=== PATIENT | female | born 1955 | race Caucasian/White ===

== ENCOUNTER 2018-08-31 00:02 | Observation (INO) ==
--- NOTE | 2018-08-31 00:16 | ED ---
HPI General Chief complaint: Respiratory Symptoms Stated complaint: Trouble swallowing Time Seen by Provider: 08/31/18 00:14 Source: patient Mode of arrival: ambulatory Limitations: no limitations History of Present Illness HPI narrative: 63-year-old female presents to the emergency department by private transportation for complaint of difficulty swallowing. Patient states that she ate dinner as usual and had no difficulties with consuming her meal which included pork. Patient does not report having a choking episode or feeling sensation of trapped foreign body in the esophagus. Discomfort is described as a pressure or bubble and feels as if she needs to belch. Patient has had no prior similar episodes in the past denies known history of esophageal stricture or need for endoscopy. Patient states that she is having difficulty swallowing her own saliva but has no difficulty swallowing water or tea. Patient states that she intermittently feels as if she needs to clear her throat or something is lodged or pressure is in the throat area and lower neck area. Patient has no chest pain no shortness of breath no stridor no hoarseness. Patient denies any headache visual disturbance difficulty speaking facial droop upper extremity lower extremity numbness tingling or weakness dizziness or balance disturbance. Patient states she awakened around 1130 with sensation of difficulty swallowing. Patient was able to get up and walk to her kitchen make a cup of tea which she drank without difficulty subsequently drink some water without difficulty but if she is not actually actively drinking some she has a sensation of something trapped in her throat or possibly her esophagus but has had no shortness of breath and no stridor or wheezing. Patient there is no progression or worsening of symptoms but is not resolving. No new foods medications beverages spices or known allergens Onset (ago): minute(s) (30) Related Data Allergies Allergy/AdvReac Type Severity Reaction Status Date / Time No Known Allergies Allergy Verified 08/31/18 00:10 Review of Systems ROS: all other systems reviewed are negative PMFSH History History Provided By: Patient (high cholesterol) Social History Social History Substance History: No History of Abuse Second Hand Smoke Exposure: No Smoking Status: Never smoker How Often Do You Have a Drink Containing Alcohol: Never Recent Travel in [facility] within the Last 8 Weeks: No Recent Out of Country Travel within the Last 8 Weeks: No Exam Narrative Exam Narrative: GENERAL: Well-developed well-nourished female in no acute respiratory distress, no stridor, no hoarseness, no drooling, no gaging or choking on oral secretions;appears mildly anxious. SKIN: Focused skin assessment warm/dry. HEAD: Atraumatic. Normocephalic. EYES: Pupils equal and round. No scleral icterus. No injection or drainage. ENT: No nasal bleeding or discharge. Mucous membranes pink and moist. Posterior pharynx is clear no edema airway is patent normal soft palate elevation. Positive gag reflex. Intact sensation. NECK: Trachea midline. No JVD. No palpable mass. Non-tender to palpation. CARDIOVASCULAR: Regular rate and rhythm. No murmur appreciated. RESPIRATORY: No accessory muscle use. Clear to auscultation. Breath sounds equal bilaterally. GASTROINTESTINAL: Abdomen soft, non-tender, nondistended. Hepatic and splenic margins not palpable. MUSCULOSKELETAL: No obvious deformities. No clubbing. No cyanosis. No edema. NEUROLOGICAL: Awake and alert. No obvious cranial nerve deficits. Motor grossly within normal limits. No pronator drift. No limb ataxia. Sensory exam grossly intact as tested. Normal speech, no expressive or receptive aphasia or dysarthria. PSYCHIATRIC: Appropriate mood and affect; insight and judgment normal. Course Initial Documented Vital Signs Pulse Rate 82 08/31/18 00:20 Respiratory Rate 16 08/31/18 00:20 Blood Pressure 163/76 H 08/31/18 00:20 Pulse Oximetry 100 08/31/18 00:20 Last Documented Vital Signs Pulse Rate 85 08/31/18 01:44 Respiratory Rate 16 08/31/18 01:44 Blood Pressure 135/69 08/31/18 01:44 Pulse Oximetry 99 08/31/18 01:44 Medical Decision Making [facility] Narrative Medical decision making narrative: 63-year-old female presents for complaint of isolated lower neck/throat sensation of fullness or tightness or inability to completely swallow. Patient able to swallow her own saliva and tea and water without difficulty but when she is not actively drinking complains of feeling as if her throat is dry or she has difficulty with swallowing. No stridor no hoarseness. Denies any known possible foreign body ingested became lodged has had no choking episode. Placed on monitor direct inspection of the posterior pharynx unremarkable patient demonstrates ability to drink without difficulty or choking. Patient administered Reglan glucagon and sublingual nitroglycerin with some benefit as she is not able to belch which makes her feel slightly improved. Labs normal emergent CT brain noncontrast reveals no acute abnormality and CC soft tissue of the neck reveals no airway narrowing or obvious foreign body. Patient states symptoms only slightly improved but unchanged from prior to CT. Discussed with neurology, admit to medicine w neuro consult for myasthenia eval and ba swallow no rec for MR;discussed with medicine service will admit to obs @ 2:50 patient symptoms are improving Medical Screen Exam Complete: Yes Emergency Medical Condition: Yes Differential Diagnosis Differential Diagnosis: Esophageal foreign body, esophageal spasm, laryngospasm , TIA, mass, thyroid ds, Guillain-Nina, myasthenia gravis, tetanus, viral syndrome Medical Records Medical records reviewed: Yes I reviewed the patient's medical records. none Lab Data Lab results reviewed: Yes I reviewed the patient's lab results. Result diagrams: 08/31/18 00:16 08/31/18 00:16 Lab Results 08/31/18 08/31/18 08/31/18 Range/Units 00:16 00:16 00:16 CBC w Diff Auto diff final WBC 11.5 H (4.0-11.0) th/mm3 RBC 4.87 (4.00-5.30) mil/mm3 Hgb 14.3 (11.6-15.3) gm/dL Hct 44.0 (35.0-46.0) % MCV 90.2 (80.0-100.0) fL MCH 29.4 (27.0-34.0) pg MCHC 32.5 (32.0-36.0) % RDW 12.6 (11.6-17.2) % Plt Count 403 (150-450) th/mm3 MPV 8.5 (7.0-11.0) fL Neut % (Auto) 60.3 (16.0-70.0) % Lymph % (Auto) 28.6 (9.0-44.0) % [place] % (Auto) 7.2 (0.0-8.0) % Eos % (Auto) 3.1 (0.0-4.0) % Baso % (Auto) 0.8 (0.0-2.0) % Neut # (Auto) 6.9 (1.8-7.7) th/mm3 Lymph # (Auto) 3.3 (1.0-4.8) th/mm3 [place] # (Auto) 0.8 (0.0-0.9) th/mm3 Eos # (Auto) 0.4 (0.0-0.4) th/mm3 Baso # (Auto) 0.1 (0.0-0.2) th/mm3 WBC Differential . Differential Comment . PT 9.4 L (9.8-11.6) sec INR 0.9 Ratio APTT 26.4 (23.4-31.7) sec Sodium 138 (136-145) meq/L Potassium 3.8 (3.5-5.1) meq/L Chloride 103 (98-107) meq/L Carbon Dioxide 27.9 (21.0-32.0) meq/L Anion Gap 7 (5-15) meq/L BUN 19 H (7-18) mg/dL Creatinine 0.75 (0.50-1.00) mg/dL Estimated GFR 78 L (>89) mL/min Random Glucose 121 H (74-106) mg/dL Calcium 8.8 (8.5-10.1) mg/dL Magnesium 2.5 (1.5-2.5) mg/dL Troponin I Less than 0.02 L (0.02-0.05) ng/mL TSH 10.500 H (0.358-3.740) uIU/mL Imaging Data Radiologist's impression: Head CT 08/31/18 00:32 CONCLUSION: 1. Negative noncontrast head CT. . Soft Tissue Neck CT 08/31/18 00:32 CONCLUSION: 1. Noncontrast study demonstrating mild asymmetry of the soft tissues along the base of the right side of the tongue. There is no identifiable focal mass. Direct visualization is recommended. 2. No adenopathy. ECG Data Attestation: I personally reviewed and interpreted this ECG as follows: (EKG: Sinus rhythm bradycardia rate [address] elevation injury pattern or ectopy noted) Prior ECG tracings: not available for review Discharge Plan Discharge Disposition Patient Disposition: 30 Still Patient Discharge Condition Condition: Stable Discharge Details Diagnosis: Dysphagia Physicians Team ED Provider: Asha Walker Primary Care Provider: Tate Gao Attending Provider: Lyla Diaz Other Providers: Yousuf Hdz Status ED Status: Admitted Observation Patient
[2018-08-31] MEDS: Sod Chloride 0.9% Inj 1,000 ML IV.CONT SCH ×4 (00:26→23:46)
[2018-08-31 00:32] LABS: Baso # (Auto) 0.1 th/mm3 (0.0-0.2); Baso % (Auto) 0.8 % (0.0-2.0); Eos # (Auto) 0.4 th/mm3 (0.0-0.4); Eos % (Auto) 3.1 % (0.0-4.0); Hemoglobin 14.3 gm/dL (11.6-15.3); Lymph # (Auto) 3.3 th/mm3 (1.0-4.8); Lymph % (Auto) 28.6 % (9.0-44.0); Mean Corpuscular HGB Conc 32.5 % (32.0-36.0); Mean Corpuscular Hemoglobin 29.4 pg (27.0-34.0); Mean Corpuscular Volume 90.2 fL (80.0-100.0); Mean Platelet Volume 8.5 fL (7.0-11.0); Mono # (Auto) 0.8 th/mm3 (0.0-0.9); Mono % (Auto) 7.2 % (0.0-8.0); Neut # (Auto) 6.9 th/mm3 (1.8-7.7); Neut % (Auto) 60.3 % (16.0-70.0); Platelet Count 403 th/mm3 (150-450); Red Blood Count 4.87 mil/mm3 (4.00-5.30); Red Cell Distribution Width 12.6 % (11.6-17.2); White Blood Count 11.5 th/mm3 (4.0-11.0)
[2018-08-31 00:38] LABS: Chloride 103 meq/L (98-107); Potassium 3.8 meq/L (3.5-5.1); Sodium 138 meq/L (136-145)
[2018-08-31 00:40] LABS: Calcium 8.8 mg/dL (8.5-10.1)
[2018-08-31 00:41] LABS: Anion Gap 7 meq/L (5-15); Blood Urea Nitrogen 19 mg/dL (7-18); Carbon Dioxide 27.9 meq/L (21.0-32.0); Glucose,Random 121 mg/dL (74-106); Magnesium 2.5 mg/dL (1.5-2.5)
[2018-08-31 00:42] LABS: Activated Partial Thrombo Time 26.4 sec (23.4-31.7); INR 0.9 Ratio; Prothrombin Time 9.4 sec (9.8-11.6)
[2018-08-31 00:44] LABS: Glomerular Filtration Rate 78 mL/min (>89)
[2018-08-31] MEDS ORDERED: Sodium Chlor 0.9% Inj 250 ML IV.SIG SCH (01:00)
--- NOTE | 2018-08-31 01:19 | CT ---
EXAM DATE: 08/31/2018 1:05 AM EST AGE/SEX: 63 years / Female INDICATIONS: Evaluate for transient ischemic attack. Difficulty swallowing. CLINICAL DATA: This is the patient's initial encounter. Patient reports that signs and symptoms have been present for 1 day and indicates a pain score of 3/10. MEDICAL/SURGICAL HISTORY: None. None. RADIATION DOSE: 61.93 CTDI (mGy) COMPARISON: No prior exams available for comparison. TECHNIQUE: CT of the head without contrast. Using automated exposure control and adjustment of the mA and/or kV according to patient size, radiation dose was kept as low as reasonably achievable to ob tain optimal diagnostic quality images. DICOM format image data is available electronically for revi ew and comparison. FINDINGS: Cerebrum: The ventricles are normal for age. No evidence of midline shift, mass lesion, hemorrhage or acute infarction. No extraaxial fluid collections are seen. Posterior Fossa: The cerebellum and brainstem are intact. The 4th ventricle is midline. The cerebe llopontine angle is unremarkable. Extracranial: The visualized portion of the orbits is intact. Skull: The calvaria is intact. No evidence of skull fracture. CONCLUSION: 1. Negative noncontrast head CT. . Electronically signed by: Moises Cortes MD 08/31/2018 1:17 AM EST
[2018-08-31] MEDS ORDERED: Famotidine PF Inj 20 MG/2 ML Vial IV.PUSH ONE (01:21)
[2018-08-31] MEDS ORDERED: MethylPREDNISolone Sod Succinate Inj 125 MG/2 ML Vial IV.PUSH ONE (01:21)
--- NOTE | 2018-08-31 01:29 | CT ---
EXAM DATE: 08/31/2018 1:07 AM EST AGE/SEX: 63 years / Female INDICATIONS: Difficulty swallowing. CLINICAL DATA: This is the patient's initial encounter. Patient reports that signs and symptoms have been present for 1 day and indicates a pain score of 3/10. MEDICAL/SURGICAL HISTORY: None. None. RADIATION DOSE: 11.20 CTDI (mGy) COMPARISON: No prior exams available for comparison. TECHNIQUE: Helical acquisition was performed using a multirow detector CT scanner without contrast. Using automated exposure control and adjustment of the mA and/or kV according to patient size, radiat ion dose was kept as low as reasonably achievable to obtain optimal diagnostic quality images. DICOM format image data is available electronically for review and comparison. FINDINGS: Nasopharynx: The nasopharyngeal airway has a normal configuration. No mucosal thickening or mass is seen. Oropharynx: The intrinsic muscles of the tongue are symmetric. The tonsillar pillars are intact. T he prevertebral soft tissues are not thickened. There is mild asymmetric the soft tissue along the ba se of the right side of the tongue best seen on upper axial MPR images numbers 19 through 22. There i s no focal mass. Larynx: The supraglottic, glottic, and infraglottic structures are intact. Parapharyngeal: The parapharyngeal space is intact. Salivary Glands: The parotid and submandibular glands are intact. Lymph Nodes: No enlarged nodes. Thyroid: Grossly intact. Bones: Unremarkable. CONCLUSION: 1. Noncontrast study demonstrating mild asymmetry of the soft tissues along the base of the right si de of the tongue. There is no identifiable focal mass. Direct visualization is recommended. 2. No adenopathy. Electronically signed by: Moises Cortes MD 08/31/2018 1:27 AM EST
[2018-08-31] MEDS ORDERED: Acetaminophen 325 MG Tablet PO PRN (01:46)
[2018-08-31] MEDS ORDERED: Bisacodyl 10 MG Supp RECTAL PRN (01:46)
[2018-08-31] MEDS: Heparin - SQ 10,000 UNITS/ML Vial SQ SCH ×2 (05:35→17:17)
[2018-08-31] MEDS: Senna/Docusate Sodium 8.6/50 MG Tablet PO SCH ×2 (08:12→20:56)
--- NOTE | 2018-08-31 08:23 | P.HP ---
History of Present Illness Primary Care Physician: Tate Gao MD, PhD Chief Complaint: Difficulty swallowing History of Present Illness: This is a pleasant 63-year-old female patient with a known medical history of hyperlipidemia who presented to the ED with complaints of difficulty swallowing. She woke up around 11:30 in the morning she states that she is having a hard time swallowing, she drinks some hot tea which she was able to get down although she was still having tightness in her throat. She did states that she has never had this type of sensation before. She does state that she has had a recent upper respiratory congestion with some possible postnasal drip , she states she has had some dry coughing as well as dry mouth. She is taken some ibuprofen and has attributed her symptoms to possible seasonal allergies. She does also admit to an intermittent headache over the past few days as well as sneezing and earaches. Patient denies any recent fevers, chills, chest pain , abdominal pain, nausea, vomiting, diarrhea or dysuria. Patient does have a history of hyperlipidemia although does not take a statin due to complaints of muscle aches on prescribed medication. Patient denies any history of thyroid disease, presents with a significantly elevated TSH. Denies ever having an EGD in the past. At the time of assessment patient is eating and drinking well, finished breakfast without any problems. She was given IV steroids in the ED. We will give 1 additional dose for complaints of continued swelling in her neck. On assessment patient's neck is benign, soft tissue neck CT showed some swelling on the right side but no significant findings. Neurological findings are negative, no significant weakness on bilateral upper or lower extremities. - Diagnosis (1) Dysphagia Review of Systems All other systems reviewed negative except as stated in HPI PMFSH - History History Provided By: Patient - Medical History Medical History: Medical History (Last Updated 08/31/18 @ 08:52 by Concha Connolly) Hyperlipidemia - Family History Family History: Family History (Last Updated 08/31/18 @ 08:54 by Concha Connolly) Father Addisons disease - Social History I have reviewed the patient's Social History: Yes - Tobacco History Second Hand Smoke Exposure: No Tobacco Use In Past 30 Days: No Smoking Status: Former smoker - Alcohol History How Often Do You Have a Drink Containing Alcohol: Monthly or less - Substance Use History Substance History: No History of Abuse - Travel History Recent Travel in the [place] Within the Last 8 Weeks: No Recent Travel Out of the Country Within the Last 8 Weeks: No - Immunization History Tetanus Immunization: <5 Years Hx Influenza Vaccine This Season: Yes Medications and Allergies Active Medications: Active Medications Acetaminophen (Tylenol) 650 mg PO Q4H PRN PRN Reason: Temp > 100.4 Al Hydroxide/Mg Hydroxide (Milk Of Magnesia Liq) 30 ml PO Q12H PRN PRN Reason: Mild Constipation Bisacodyl (Dulcolax Supp) 10 mg RECTAL DAILY PRN PRN Reason: SEVERE CONSITIPATION Heparin Sodium (Porcine) (Heparin Inj) 5,000 units SQ Q12H [facility] Last Admin: 08/31/18 05:35 Dose: 5,000 units Sodium Chloride (Ns Inj) 1,000 mls @ 84 mls/hr IV.CONT .[id number] [facility] Last Admin: 08/31/18 00:26 Dose: 84 mls/hr Lactulose (Lactulose Liq) 30 ml PO DAILY PRN PRN Reason: SEVERE CONSITIPATION Ondansetron HCl (Zofran Inj) 4 mg IV.PUSH Q6H PRN PRN Reason: NAUSEA OR VOMITING Senna/Docusate Sodium (Maty-Colace) 1 tab PO BID [facility] Last Admin: 08/31/18 08:12 Dose: Not Given Sennosides (Senokot) 17.2 mg PO Q12H PRN PRN Reason: Moderate Constipation Allergies Allergy/AdvReac Type Severity Reaction Status Date / Time No Known Allergies Allergy Verified 08/31/18 00:10 Exam Vital signs: Vital Signs 08/31/18 00:20 08/31/18 00:30 08/31/18 00:35 Temperature Pulse Rate 82 87 78 Respiratory Rate 16 18 Blood Pressure 163/76 H 156/71 H 140/67 Pulse Oximetry 100 100 100 08/31/18 00:41 08/31/18 00:59 08/31/18 01:44 Temperature Pulse Rate 78 85 Respiratory Rate 16 16 Blood Pressure 106/66 111/68 135/69 Pulse Oximetry 100 99 08/31/18 03:22 Temperature 97.1 F L Pulse Rate 71 Respiratory Rate 18 Blood Pressure 133/64 Pulse Oximetry 95 Intake & Output 08/30/18 08/31/18 08/31/18 18:59 06:59 18:59 Intake Total 250 / 250 Output Total 300 / 300 Balance -50 / -50 Weight 79.3 kg Intake: IV 250 / 250 NS Inj 250 ML @ 500 mls/hr IV. 250 / 250 SIG BOLUS JULISSA Rx#:[id number] Oral 0 / 0 Output: Urine 300 / 300 Other: Weight On Admission 79.4 kg Narrative: GENERAL: Well-developed, well-nourished patient in [facility]. SKIN: Warm and dry. No rash. HEAD: Normocephalic. Atraumatic. EYES: Pupils equal and round. No scleral icterus. No injection or drainage. ENT: No nasal bleeding or discharge. Mucous membranes pink and moist. NECK: Supple. Trachea midline. CARDIOVASCULAR: Regular rate and rhythm. S1, S2 noted. No murmur appreciated. RESPIRATORY: No accessory muscle use. Clear to auscultation. Breath sounds equal bilaterally. GASTROINTESTINAL: Abdomen soft, non-tender, nondistended. Normoactive bowel sounds x4. MUSCULOSKELETAL: No obvious deformities. Extremities without clubbing, cyanosis , or edema. NEUROLOGICAL: Awake and alert. No obvious cranial nerve deficits. Motor grossly within normal limits. 5/5 muscle strength in bilateral upper and lower extremities. Normal speech. PSYCHIATRIC: Appropriate mood and affect; insight and judgment normal. Results - Labs CBC & Chem 7: 08/31/18 00:16 08/31/18 00:16 Labs: Laboratory Results - last 24 hr 08/31/18 08/31/18 08/31/18 00:16 00:16 00:16 CBC w Diff Auto diff final WBC 11.5 H RBC 4.87 Hgb 14.3 Hct 44.0 MCV 90.2 MCH 29.4 MCHC 32.5 RDW 12.6 Plt Count 403 MPV 8.5 Neut % (Auto) 60.3 Lymph % (Auto) 28.6 [place] % (Auto) 7.2 Eos % (Auto) 3.1 Baso % (Auto) 0.8 Neut # (Auto) 6.9 Lymph # (Auto) 3.3 [place] # (Auto) 0.8 Eos # (Auto) 0.4 Baso # (Auto) 0.1 WBC Differential . Differential Comment . PT 9.4 L INR 0.9 APTT 26.4 Sodium 138 Potassium 3.8 Chloride 103 Carbon Dioxide 27.9 Anion Gap 7 BUN 19 H Creatinine 0.75 Estimated GFR 78 L Random Glucose 121 H Calcium 8.8 Magnesium 2.5 Troponin I Less than 0.02 L TSH 10.500 H - Imaging Impressions Head CT 08/31/18 00:32 CONCLUSION: 1. Negative noncontrast head CT. . Soft Tissue Neck CT 08/31/18 00:32 CONCLUSION: 1. Noncontrast study demonstrating mild asymmetry of the soft tissues along the base of the right side of the tongue. There is no identifiable focal mass. Direct visualization is recommended. 2. No adenopathy. Caprini VTE Risk Assessment Caprini VTE Risk Assessment: Moderate/High Risk (score >= 2) Caprini Risk Assessment Model: Point Value = 1 Point Value = 2 Point Value = 3 Point Value = 5 Age 41-60 Minor surgery BMI > 25 kg/m2 Swollen legs Varicose veins or History of unexplained or recurrent spontaneous Oral contraceptives or hormone replacement Sepsis (< 1 month) Serious lung disease, including pneumonia (< 1 month) Abnormal pulmonary function Acute myocardial infarction Congestive heart failure (< 1 month) History of inflammatory bowel disease Medical patient at bed rest Age 61-74 Arthroscopic surgery Major open surgery (> 45 min) Laparoscopic surgery (> 45 min) Malignancy Confined to bed (> 72 hours) Immobilizing plaster cast Central venous access Age >= 75 History of VTE Family history of VTE Factor V Leiden Prothrombin [id number] Lupus anticoagulant Anticardiolipin antibodies Elevated serum homocysteine Heparin-induced thrombocytopenia Other congenital or acquired thrombophilia Stroke (< 1 month) Elective arthroplasty Hip, pelvis, or leg fracture Acute spinal cord injury (< 1 month) Prophylaxis Regimen: Total Risk Factor Score Risk Level Prophylaxis Regimen 0-1 Low Early ambulation 2 Moderate Order ONE of the following: *Sequential Compression Device (SCD) *Heparin 5000 units SQ BID 3-4 Higher Order ONE of the following medications: *Heparin 5000 units SQ TID *Enoxaparin/Lovenox 40 mg SQ daily (WT < 150 kg, CrCl > 30 mL/min) *Enoxaparin/Lovenox 30 mg SQ daily (WT < 150 kg, CrCl > 10-29 mL/min) *Enoxaparin/Lovenox 30 mg SQ BID (WT < 150 kg, CrCl > 30 mL/min) AND/OR *Sequential Compression Device (SCD) 5 or more Highest Order ONE of the following medications: *Heparin 5000 units SQ TID (Preferred with Epidurals) *Enoxaparin/Lovenox 40 mg SQ daily (WT < 150 kg, CrCl > 30 mL/min) *Enoxaparin/Lovenox 30 mg SQ daily (WT < 150 kg, CrCl > 10-29 mL/min) *Enoxaparin/Lovenox 30 mg SQ BID (WT < 150 kg, CrCl > 30 mL/min) AND *Sequential Compression Device (SCD) Assessment and Plan - Assessment (1) Dysphagia Code(s): R13.10 - Dysphagia, unspecified Status: Acute - Plan This is a 63-year-old female patient with: Dysphagia -Patient complains of difficulty swallowing x 1 day. Symptoms have significantly improved. -Soft tissue of the neck CT reviewed showing mild asymmetry of the soft tissues along the base of the right side of the tongue. -Patient was given methylprednisone IV in ED. Will continue steroids. -Neurology was consulted for possible workup of myasthenia gravis, input and recommendations pending. -Will consult GI for complaints of dysphagia. May need endoscope. Awaiting input and recommendations. -Patient tolerated breakfast well without any problems swallowing. -Continue to monitor closely for aspiration. Hypothyroidism Elevated TSH -TSH 10.5 on presentation. Patient denies any history of thyroid disease. Free T4. -Started on levothyroxine. Outpatient follow up 4-6 weeks for TSH recheck. Seasonal allergies -Will start on Singulair as well as Mucinex. Tessalon pearls as needed for cough. DVT prophylaxis: SCDs. Heparin. (1) Dysphagia Qualifiers: Dysphagia type: unspecified Qualified Code(s): R13.10 - Dysphagia, unspecified
[2018-08-31] MEDS ORDERED: Benzonatate 100 MG Capsule PO PRN (08:59)
[2018-08-31] MEDS: guaiFENesin 600 MG ER Tablet PO SCH ×2 (10:11→20:56)
[2018-08-31] MEDS: Ibuprofen 400 MG Tablet PO PRN ×2 (10:47→19:31)
--- NOTE | 2018-08-31 12:45 | ECG ---
Date Performed: 08/31/2018 Time Performed: 01:45:04 PTAGE: 63 years EKG: SINUS BRADYCARDIA POSSIBLE LEFT ATRIAL ENLARGEMENT BORDERLINE ECG NO PREVIOUS TRACING DOCTOR: Florinda Marshall Interpretating Date/Time 08/31/2018 12:41:49
--- NOTE | 2018-08-31 20:40 | MB ---
cc: Lisa Taveras MD DATE: 08/31/2018 REFERRING PHYSICIAN: Larissa Landin MD REASON FOR CONSULTATION: Dysphagia. HISTORY OF PRESENT ILLNESS: Ms. Ribera is a very pleasant 63-year-old lady who came to the emergency room with complaints of inability to swallow. She stated that she woke up around 11:30 in the morning and she could not swallow. She never had this kind of problem before. She said she did have recent upper respiratory congestion with possible postnasal drip, has some dry cough and dry mouth. She was taking some ibuprofen, thought her symptoms are related to allergies. She denies any weight loss, melena, hematemesis or hematochezia. She never had endoscopy in the past. She does have a history of a colonoscopy 10 years ago, which was normal. CT soft tissue showed some swelling on the right side, but no other findings. Neurology consultation was requested pending at this time. PAST MEDICAL HISTORY: Hyperlipidemia. FAMILY HISTORY: Callum disease. SOCIAL HISTORY: Denies any smoking, drinking or drug use. ALLERGIES: NO KNOWN ALLERGIES. MEDICATIONS: In the hospital, 1. Milk of magnesia. 2. Dulcolax. 3. Lactulose. 4. Zofran. 5. Senokot. 6. At home ibuprofen. REVIEW OF SYSTEMS: CONSTITUTIONAL: She denies any fever, chills, weight loss or weight gain. ENT: No alteration of baseline hearing or visual activity. PULMONARY: Denies any chest pain, shortness of breath. GASTROINTESTINAL: As above. GENITOURINARY: Denies dysuria or hematuria. HEMATOLOGIC: Denies any history of anemia or bleeding disorder. SKIN: No alteration of baseline skin lesion. NEUROLOGIC: No history of TIA or CVA kind of symptoms. PHYSICAL EXAMINATION: GENERAL: She is sitting comfortable in bed, in no acute distress. VITAL SIGNS: Temperature 97.5, heart rate is 89, respiratory 18, blood pressure 145/80, saturation 98. HEENT: PERRLA. NECK: No JVD. No lymphadenopathy. CHEST: Clear to auscultation and palpation. CARDIOVASCULAR: S1, S2. No murmur. ABDOMEN: Soft, nontender. Bowel sounds are present. CENTRAL NERVOUS SYSTEM: Awake, alert, oriented x3, and no focal signs identified. LABORATORY DATA: CBC is normal. Her PT/INR is normal. Chemistry essentially normal except glucose is 121 and TSH is 10.5. CT neck as described. IMPRESSION: Dysphagia, odynophagia, unclear etiology. Rule out esophageal pathology versus ENT pathology. RECOMMENDATIONS: Antireflux measures, PPI, EGD with possible dilatation in the morning. If this is negative, consider barium swallow and ENT consult. I would like to thank you for referring her to our office for consultation. Risks and benefits of the above procedure were discussed with the patient. Lisa Taveras MD BSB/sv , 07:50 PM , 08:00 PM MTDD
[2018-08-31] MEDS ORDERED: Melatonin 5 MG Tablet PO PRN (20:53)
[2018-08-31] MEDS ORDERED: Montelukast 10 MG Tablet PO SCH (21:00)
[2018-09-01] MEDS: Ibuprofen 400 MG Tablet PO PRN (06:06)
[2018-09-01] MEDS: Sod Chloride 0.9% Inj 1,000 ML IV.CONT SCH (06:09)
[2018-09-01] MEDS: Heparin - SQ 10,000 UNITS/ML Vial SQ SCH (06:09)
[2018-09-01] MEDS ORDERED: Metoprolol Tartrate 25 MG Tablet PO ONE (07:37)
[2018-09-01] MEDS ORDERED: Chlorhexidine Gluconate 2% 1 Pack (2 Cloths) TOPICAL ONE (07:37)
[2018-09-01] MEDS ORDERED: Sodium Chlor 0.9% Inj 500 ML IV.SIG SCH (08:00)
--- NOTE | 2018-09-01 08:03 | GIPROC ---
[address], [address] EGD PROCEDURE REPORT EXAM DATE: 09/01/2018 PATIENT NAME: Sunshine Ribera MR #: [id number] BIRTHDATE: 1955 ATTENDING: Lisa Taveras MD ORDER #: [id number] STAKE DRIVER: Romy Cohn and Ashwini Eason STATUS: inpatient INDICATIONS: The patient is a 63 yr old female here for an EGD due to dysphagia PROCEDURE PERFORMED: EGD w/ biopsy EGD w/ dilation of esophagus via guidewire MEDICATIONS: None and Per Anesthesia. TOPICAL ANESTHETIC: none CONSENT: The patient understands the risks and benefits of the procedure and understands that these risks include, but are not limited to: sedation, allergic reaction, infection, perforation and/or bleeding. Alternative means of evaluation and treatment include, among others: physical exam, x-rays, and/or surgical intervention. The patient elects to proceed with this endoscopic procedure. medical equipment was checked for proper function. Hand hygiene and appropriate measures for infection prevention was taken. After the risks, benefits and alternatives of the procedure were thoroughly explained, Informed consent was verified, confirmed and timeout was successfully executed by the treatment team. The patient was anesthetized with topical anesthesia and the Pentax EG-[id number] endoscope was introduced through the mouth and advanced to the second portion of the duodenum. Retroflexed views revealed a hiatal hernia The gastroscope was then slowly withdrawn and removed. Gastrtiis antrum-biopsy irregulr z line-biopsy dilatation upper esophgeal sphincter savary 17. ADVERSE EVENTS: There were no complications. IMPRESSIONS: 1. Gastrtiis antrum-biopsy irregulr z line-biopsy dilatation upper esophgeal sphincter savary 17 2. Retroflexed views revealed a hiatal hernia RECOMMENDATIONS: 1. Await biopsy results. Biopsy results will not be ready for 7-10 days. If you don't hear from us in two weeks, call our office for biopsy results. 2. Anti-reflux regimen 3. Ba swallow nystatin soft diet ok to dc home from [facility] if tolerated diet ppi PATIENT CONDITION: stable DISPOSITION: Inpatient REPEAT EXAM: Return 6 months EGD Lisa Taveras MD eSigned: Lisa Taveras MD 09/01/2018 8:02 AM cc:
--- NOTE | 2018-09-01 08:49 | P.PNIM ---
Subjective Interval history: Follow-up dysphagia. Patient seen and examined, sitting up in bed comfortably status post EGD with dilation. Awaiting barium swallow. Doing well. Feels improved. VSS. DC later this afternoon if tolerating PO intake. Physical Exam Vital signs: Vital Signs 08/31/18 12:00 08/31/18 16:00 08/31/18 20:00 Temperature 98.8 F 97.5 F L 96.1 F L Pulse Rate 89 87 Respiratory Rate 19 20 18 Blood Pressure 127/68 145/80 H 141/74 H Pulse Oximetry 96 98 95 08/31/18 20:29 09/01/18 00:00 09/01/18 07:02 Temperature 98.8 F 98.8 F Pulse Rate 86 86 Respiratory Rate 20 18 18 Blood Pressure 145/74 H 145/74 H Pulse Oximetry 96 96 09/01/18 08:07 09/01/18 08:12 09/01/18 08:32 Temperature 98.7 F Pulse Rate 73 72 62 Respiratory Rate 14 16 16 Blood Pressure 110/66 118/66 112/57 L Pulse Oximetry 95 95 95 Intake & Output 08/31/18 09/01/18 09/01/18 18:59 06:59 18:59 Intake Total 1960 / 1960 2200 / 2200 100 / 100 Output Total 900 / 900 600 / 600 Balance 1060 / 1060 1600 / 1600 100 / 100 Intake: IV 1000 / 1000 1999 / 1999 NS Inj 1,000 ML @ 84 mls/hr IV. 1000 / 1000 1999 CONT .[id number] [facility] Rx#: [id number] Oral 720 / 720 200 / 200 Tube Feeding 240 / 240 Anesthesia Amount 100 / 100 Output: Urine 900 / 900 600 / 600 Narrative: GENERAL: Well-developed, well-nourished patient in NAD. SKIN: Warm and dry. No rash. HEAD: Normocephalic. Atraumatic. EYES: Pupils equal and round. No scleral icterus. No injection or drainage. ENT: No nasal bleeding or discharge. Mucous membranes pink and moist. NECK: Supple. Trachea midline. CARDIOVASCULAR: Regular rate and rhythm. S1, S2 noted. No murmur appreciated. RESPIRATORY: No accessory muscle use. Clear to auscultation. Breath sounds equal bilaterally. GASTROINTESTINAL: Abdomen soft, non-tender, nondistended. Normoactive bowel sounds x4. MUSCULOSKELETAL: No obvious deformities. Extremities without clubbing, cyanosis , or edema. NEUROLOGICAL: Awake and alert. No obvious cranial nerve deficits. Motor grossly within normal limits. 5/5 muscle strength in bilateral upper and lower extremities. Normal speech. PSYCHIATRIC: Appropriate mood and affect; insight and judgment normal. Results - Labs CBC & Chem 7: 08/31/18 00:16 08/31/18 00:16 Laboratory Results - last 24 hr 08/31/18 00:16 Free T4 1.09 Assessment and Plan - Assessment (1) Dysphagia Code(s): R13.10 - Dysphagia, unspecified Status: Acute - Plan This is a 63-year-old female patient with: Dysphagia -Patient complains of difficulty swallowing x 1 day. Symptoms have significantly improved. -Soft tissue of the neck CT reviewed showing mild asymmetry of the soft tissues along the base of the right side of the tongue. -Patient was given methylprednisone IV in ED. Will continue steroids. Wean. -GI consulted, appreciate input and recommendations. -Patient tolerated PO intake well yesterday without any problems swallowing. -Continue to monitor closely for aspiration. -GI performed an EGD this morning with dilation, showed some gastritis. Started on PPI. -Awaiting barium swallow today. Hypothyroidism Elevated TSH -TSH 10.5 on presentation. Patient denies any history of thyroid disease. Free T4. -Started on levothyroxine. Outpatient follow up 4-6 weeks for TSH recheck. Seasonal allergies. Improving. -Will start on Singulair as well as Mucinex. Tessalon pearls as needed for cough. DVT prophylaxis: SCDs. Heparin. Discharge Planning: Anticipate DC later this afternoon after barium swallow and if tolerating PO intake. (1) Dysphagia Qualifiers: Dysphagia type: unspecified Qualified Code(s): R13.10 - Dysphagia, unspecified
[2018-09-01] MEDS ORDERED: Pantoprazole Inj 40 MG Vial IV.PUSH SCH (09:00)
[2018-09-01] MEDS: Senna/Docusate Sodium 8.6/50 MG Tablet PO SCH (09:01)
[2018-09-01] MEDS: guaiFENesin 600 MG ER Tablet PO SCH (09:02)
[2018-09-01] MEDS: Nystatin Liq 500,000 UNIT/5 ML UDC SWISH-SWAL SCH ×2 (09:07→13:27)
--- NOTE | 2018-09-01 12:51 | FL ---
EXAM DATE: 09/01/2018 11:47 AM EST AGE/SEX: 63 years / Female INDICATIONS: Difficulty swallowing. CLINICAL DATA: This is the patient's subsequent encounter. Patient reports that signs and symptoms h ave been present for 3 days and indicates a pain score of 0/10. MEDICAL/SURGICAL HISTORY: None. None. COMPARISON: . FLUORO TIME: 2.2 minutes IMAGE COUNT: 58 FINDINGS: Swallowing is normal. The oropharynx and hypopharynx have a normal radiographic appearance. 2 benign- appearing subcentimeter calcifications are seen in the soft tissues adjacent to the right piriform si nus and vallecula. These do not appear to be within the lumen. The esophagus has normal caliber. A few episodes of very mild esophageal spasm seen distally in no fi xed narrowing. The gastroesophageal junction has a normal appearance. No hiatal hernia demonstrated. No reflux was s een during the course of the study. Patient has degenerative disc disease with anterior osseous ridging at C5/C6 and there is mild extrin sic impression on the posterior margin of the upper esophagus. CONCLUSION: 1. Minimal distal presbyesophagus. 2. Small extraluminal calcifications along the right side of the hypopharynx as described. Etiology uncertain but these appear benign. Conceivably they could be post infectious or post inflammatory. I don't see an associated diverticulum or other acute abnormality. 3. Anterior osseous ridging of the cervical spine at C5/C6 causes mild impression on the posterior m argin of the esophagus. Electronically signed by: Edinson Guzman MD 09/01/2018 12:50 PM EST
--- NOTE | 2018-09-01 14:06 | XR ---
EXAM DATE: 09/01/2018 1:51 PM EST AGE/SEX: 63 years / Female INDICATIONS: Degenerative disk disease. CLINICAL DATA: This is the patient's initial encounter. Patient reports that signs and symptoms have been present for > 1 year and indicates a pain score of 6/10. MEDICAL/SURGICAL HISTORY: None. None. COMPARISON: [facility], BARIUM SWALLOW, 09/01/2018. . FINDINGS: There are degenerative changes at C5-C6. Minimal posterior osteophytosis is noted. There is minimal n eural foraminal encroachment bilaterally at C5-C6. AP and odontoid unremarkable. CONCLUSION: Degenerative changes C5-C6 with minimal neural foraminal encroachment. Electronically signed by: Kris Coffey MD 09/01/2018 2:05 PM EST
== END 2018-09-01 17:20 | disposition home or self-care (01) ==
LOC: PHEDA 00:02 → PHED 00:02 → PH3 02:59
PROVIDERS: ADMIT Hospitalist; ATTEND Hospitalist